=== PATIENT | female | born 1945 | race African-American/Black ===

== ENCOUNTER 2021-10-03 14:46 | Inpatient (IN) | payer BC, MEDICAID ==
[~2021-10-03] VITALS: Ht 157.5 cm; Wt 74.9 kg
[2021-10-03] MEDS ORDERED: HYDROCODONE/ACETAMINOPHEN 10/325MG TABLET PO ONE (15:30)
[2021-10-03] MEDS ORDERED: ACETAMINOPHEN 325MG TABLET PO STA (21:00)
[2021-10-03] MEDS ORDERED: IBUPROFEN 600MG TABLET PO STA (21:00)
[2021-10-03] MEDS ORDERED: CEFTRIAXONE 2 G PREMIX 50 ML IV ONE (21:15)
[2021-10-03] MEDS ORDERED: VANCOMYCIN 1G PREMIX 200 ML IV SCH (21:15)
[2021-10-03 21:44] LABS: BASOPHILS % 0.8 % (0.0-2.0); EOSINOPHILS % 0.1 % (0.0-5.0); HEMATOCRIT. 36.6 % (36.0-48.0); HEMOGLOBIN. 12.2 g/dL (12.0-16.0); LYMPHOCYTES % 17.5 % (20.0-50.0); MEAN CORPUSCULAR HEMOGLOBIN 27.9 pg (28.0-32.0); MEAN CORPUSCULAR VOLUME 83.8 fL (81.0-99.0); MEAN PLATELET VOLUME 7.4 fl (7.4-10.4); NEUTROPHILS % 72.6 % (40.0-76.0); PLATELET 287 x1000/uL (130-400); RED BLOOD CELL COUNT 4.37 mill/uL (4.2-5.4); RED CELL DISTRIBUTION WIDTH 14.1 % (11.6-14.6)
[2021-10-03 22:13] LABS: CHLORIDE 102 mEq/L (98-107)
[2021-10-03] MEDS ORDERED: CEFTRIAXONE 2 G in DEXTROSE 5% WATER 50 ML IV NR (22:15)
[2021-10-03] MEDS ORDERED: ACETAMINOPHEN 325MG TABLET PO NR (23:45)
[2021-10-03] MEDS ORDERED: IBUPROFEN 600MG TABLET PO NR (23:45)
[2021-10-03] MEDS ORDERED: HYDROCODONE/ACETAMINOPHEN 10/325MG TABLET PO NR (23:45)
[2021-10-04] MEDS ORDERED: ZOLPIDEM TARTRATE 5MG TABLET PO PRN (01:45)
[2021-10-04] MEDS ORDERED: DOCUSATE SODIUM 100MG CAPSULE PO PRN (01:45)
[2021-10-04] MEDS ORDERED: HYDROMORPHONE HCL/PF 2MG/ML CPJ IV PRN (01:45)
[2021-10-04] MEDS ORDERED: ONDANSETRON HCL 4MG/2ML INJ IV PRN (01:45)
[2021-10-04] MEDS ORDERED: ACETAMINOPHEN 325MG TABLET PO PRN (01:45)
[2021-10-04] MEDS ORDERED: NALOXONE HCL 0.4MG/ML VIAL IV PRN (01:45)
[2021-10-04 08:35] VITALS: BP 139/64
[2021-10-04] MEDS: ENOXAPARIN 40MG/0.4ML SYR SUBCUT SCH (10:03)
[2021-10-04 12:00] VITALS: BP 145/67
[2021-10-04] MEDS: HYDROCODONE/ACETAMINOPHEN 5/325MG TABLET PO PRN (14:59)
[2021-10-04 15:41] VITALS: BP 102/57
[2021-10-04 16:00] VITALS: BP 136/66
[2021-10-04 18:29] LABS: CLARITY URINE CLOUDY (CLEAR); COLOR URINE DARK YELLOW (YELLOW); KETONES URINE TRACE (NEGATIVE); LEUKOCYTE ESTERASE URINE 1+ (NEGATIVE); NITRITE URINE NEGATIVE (NEGATIVE); OCCULT BLOOD URINE NEGATIVE (NEGATIVE); PROTEIN URINE 2+ (NEGATIVE); SPECIFIC GRAVITY URINE 1.026 (1.005-1.030)
[2021-10-04] MEDS ORDERED: CEFTRIAXONE 2 G in DEXTROSE 5% WATER 50 ML IV SCH (21:00)
[2021-10-05] VITALS: BP 128/60
[2021-10-05] MEDS ORDERED: CEFTRIAXONE 2 G PREMIX 50 ML IV SCH
[2021-10-05] MEDS ORDERED: CEFTRIAXONE 2 G in DEXTROSE 5% WATER 50 ML IV SCH ×2
[2021-10-05] MEDS: HYDROCODONE/ACETAMINOPHEN 5/325MG TABLET PO PRN (04:45)
[2021-10-05 08:00] VITALS: BP 112/73
[2021-10-05] MEDS: ENOXAPARIN 40MG/0.4ML SYR SUBCUT SCH (09:14)
[2021-10-05 12:00] VITALS: BP 115/52
[2021-10-05 13:22] VITALS: BP 112/73
== END 2021-10-05 15:27 | disposition home or self-care (01) | DRG 552 ==
LOC: ER 14:46 → 6EST 22:02 → CANRESERV 10-04 07:51 → ENRESERV 10-04 07:51
PROVIDERS: ADMIT Internal Medicine Pulmonary Disease; ATTEND Internal Medicine Pulmonary Disease
DX: M54.2 Cervicalgia (principal); E44.1 Mild protein-calorie malnutrition; M17.12 Unilateral primary osteoarthritis, left knee; M25.522 Pain in left elbow; J45.909 Unspecified asthma, uncomplicated; I10 Essential (primary) hypertension; E11.9 Type 2 diabetes mellitus without complications; E78.00 Pure hypercholesterolemia, unspecified; E87.6 Hypokalemia; E66.9 Obesity, unspecified; E78.5 Hyperlipidemia, unspecified; R79.82 Elevated C-reactive protein (CRP); Z68.30 Body mass index [BMI] 30.0-30.9, adult; M77.8 Other enthesopathies, not elsewhere classified; M62.838 Other muscle spasm
CPT/HCPCS: 36415; 70551; 72141; 73080; 73200; 80053; 81003; 84145; 85025; 85651; 86140; 97110; 97162; 99285; J0696; J1170; J1650; J3370; J7060

== ENCOUNTER 2022-11-26 13:48 | Emergency (ER) | payer BC, MEDICAID ==
[~2022-11-26] VITALS: Ht 157.5 cm; Wt 75.0 kg
[2022-11-26 13:53] VITALS: BP 164/90; PULSE 96; RESP 16; TEMP 98.1; O2SAT 97
[2022-11-26] MEDS ORDERED: BACITRACIN ZINC OINT UDPKT TOP NR (14:00)
[2022-11-26] MEDS ORDERED: TETANUS, DIPHTHERIA, PERTUSSIS VAC/PF 0.5ML (>10YR OLD) IM ONE ×2 (14:00→17:00)
[2022-11-26] MEDS ORDERED: ACETAMINOPHEN 325MG TABLET PO ONE (14:00)
[2022-11-26] MEDS ORDERED: BACITRACIN ZINC OINT UDPKT TOP ONE (14:00)
[2022-11-26] MEDS ORDERED: ACETAMINOPHEN 325MG TABLET PO NR (14:00)
== END 2022-11-26 17:41 | disposition home or self-care (01) ==
LOC: ER 13:48
DX: S50.312A Abrasion of left elbow, initial encounter (principal); J45.909 Unspecified asthma, uncomplicated; E11.9 Type 2 diabetes mellitus without complications; E78.00 Pure hypercholesterolemia, unspecified; I10 Essential (primary) hypertension; G89.11 Acute pain due to trauma; V49.49XA Driver injured in collision with other motor vehicles in traffic accident, initial encounter; Y93.89 Activity, other specified; Y92.89 Other specified places as the place of occurrence of the external cause; Y99.8 Other external cause status
CPT/HCPCS: 73080; 90471; 90715; 99283